=== PATIENT | female | born 1960 | race Caucasian/White ===

== ENCOUNTER 2020-08-31 09:15 | Emergency (ER) | payer OTHER ==
[2020-08-31] MEDS ORDERED: NORCO 5-325 TA1 EACH PO (10:35)
== END 2020-08-31 10:50 | disposition home or self-care (01) ==
LOC: FER 09:15
DX: S84.91XA Injury of unspecified nerve at lower leg level, right leg, initial encounter (principal); S63.501A Unspecified sprain of right wrist, initial encounter; S93.401A Sprain of unspecified ligament of right ankle, initial encounter; W00.0XXA Fall on same level due to ice and snow, initial encounter
CPT/HCPCS: 73110; 73610